=== PATIENT | male | born 1980 | race Two or more races ===

== ENCOUNTER 2020-10-23 10:28 | Emergency (ER) | payer SELFPAY ==
[~2020-10-23] VITALS: Ht 165.1 cm; Wt 72.6 kg
[2020-10-23 10:47] LABS: Urine WBC None Seen /hpf (0 - 3)
[2020-10-23 10:58] LABS: Urine Bacteria NONE SEEN /hpf (None Seen); Urine Blood Negative /uL (Negative); Urine Specific Gravity 1.003 (1.001-1.035)
[2020-10-23] MEDS ORDERED: ONDANSETRON HCL 4 MG/2 ML VIAL IV ONE (11:15)
[2020-10-23] MEDS ORDERED: SODIUM CHLORIDE 0.9% 1,000 ML IVB ONE (11:15)
[2020-10-23 11:31] LABS: Basophils # (auto) 0 10 ^3/uL (0-0.2); Basophils % (auto) 0.4 % (0.0-2.0); Eosinophils # (auto) 0.2 10 ^3/uL (0-0.8); Eosinophils % (auto) 3.3 % (0.0-7.0); Hemoglobin 14.9 g/dL (13.5-17.5); Lymphocytes # (auto) 2.3 10 ^3/uL (0.4-5.4); Lymphocytes % (auto) 37.1 % (10.0-50.0); Mean Corpuscular Hemoglobin 32.8 pg (28.0-32.0); Mean Corpuscular Hgb Conc. 34.7 g/dL (32.0-36.0); Mean Corpuscular Volume 94.6 fL (80.0-100.0); Monocytes # (auto) 0.5 10 ^3/uL (0-1.3); Monocytes % (auto) 7.4 % (0.0-12.0); Neutrophils # (auto) 3.2 10 ^3/uL (1.6-8.6); Neutrophils % (auto) 51.8 % (37.0-80.0); Nucleated Red Blood Cells % 0.1 %; Platelet Count (auto) 197 10^3/uL (140-450); Red Blood Cells 4.55 10^6/uL (4.5-5.90); Red Cell Distribution Width 12.4 % (11.8-14.3); White Blood Cell 6.1 10^3/uL (4.4-10.8)
[2020-10-23 11:56] LABS: Albumin 3.8 g/dL (3.4-5.0); Calcium 8.9 mg/dL (8.5-10.1); Magnesium 2.2 mg/dL (1.6-2.6); Potassium 3.8 mmol/L (3.5-5.1)
[2020-10-23 12:00] LABS: BUN/Creatinine Ratio 12.8; Bilirubin, Total 0.4 mg/dL (0.2-1.0); Total Protein 7.4 g/dL (6.4-8.2)
[2020-10-23] MEDS ORDERED: ONDANSETRON ODT 4 MG TAB PO ONE (13:15)
[2020-10-23 13:21] VITALS: BP 152/84
== END 2020-10-23 14:03 | disposition home or self-care (01) ==
LOC: ER 10:28
DX: R10.9 Unspecified abdominal pain (principal)
CPT/HCPCS: 36415; 74176; 80053; 81001; 83735; 85025; 99284; Q0162

== ENCOUNTER 2020-11-01 11:40 | Emergency (ER) | payer SELFPAY ==
[~2020-11-01] VITALS: Ht 162.6 cm; Wt 72.6 kg
[2020-11-01 12:18] VITALS: BP 121/82
[2020-11-01 12:23] LABS: Alcohol, Urine < 3.0 mg/dL (0-10); Amphetamine Screen, Urine NEGATIVE (NEGATIVE); Barbiturate Scree,Urine NEGATIVE (NEGATIVE); Benzodiazephine Screen, Urine NEGATIVE (NEGATIVE); Cannabinoid Screen, Urine NEGATIVE (NEGATIVE); Cocaine Screen, Urine NEGATIVE (NEGATIVE); Opiate Scree,Urine NEGATIVE (NEGATIVE); Phencyclidine Screen, Urine NEGATIVE (NEGATIVE)
== END 2020-11-01 13:30 | disposition home or self-care (01) ==
LOC: ER 11:40
DX: K04.7 Periapical abscess without sinus (principal)
CPT/HCPCS: 80307